=== PATIENT | female | born 1970 | race Caucasian/White ===

== ENCOUNTER 2018-02-13 23:48 | Inpatient (IN) | payer BC ==
[~2018-02-13] VITALS: Ht 157.5 cm; Wt 86.2 kg
[~2018-02-13 23:48] MED LIST: DESYREL100 MG PO; EFFEXOR XR150 MG PO; KEFLEX500 MG PO; MELATONIN10 M1 PO; PRILOSEC20 MG PO
[2018-02-14 13:27] VITALS: BP 129/82
[2018-02-14 21:03] VITALS: BP 136/81
[2018-02-14 21:52] LABS: HEMOGLOBIN 13.4 G/DL (11.9-15.5); MCH 27.7 PG (29.0-34.0); MCHC 33.5 G/DL (30.0-36.0); MCV 82.8 FL (83-99); PLATELET COUNT 224 K/uL (156-360); RBC DIS.WIDTH-CV 12.7 % (11.8-14.6); RBC DIS.WIDTH-SD 38.2 % (39-53); RED BLOOD COUNT 4.83 M/uL (3.80-5.20); WHITE BLOOD COUNT 16.7 K/uL (4.1-10.2)
[2018-02-14 22:16] LABS: CHLORIDE 102 MEQ/L (99-109); CREATININE 0.9 MG/DL (0.6-1.3); GFR ESTIMATE (CALCULATED) > 59 mL/min/; GLUCOSE 197 mg/dL (70-99); POTASSIUM 3.9 MEQ/L (3.7-5.4); SODIUM 136 MEQ/L (136-147); UREA NITROGEN (BUN) 9 mg/dL (9-23)
[2018-02-14 23:20] VITALS: BP 143/60
[2018-02-15 03:25] VITALS: BP 134/83
[2018-02-15 07:11] VITALS: BP 130/83
[2018-02-15 07:31] LABS: HEMATOCRIT 41.4 % (36.0-46.0); HEMOGLOBIN 13.8 G/DL (11.9-15.5); MCH 28.2 PG (29.0-34.0); MCHC 33.3 G/DL (30.0-36.0); MCV 84.7 FL (83-99); PLATELET COUNT 237 K/uL (156-360); RBC DIS.WIDTH-SD 39.6 % (39-53); RED BLOOD COUNT 4.89 M/uL (3.80-5.20); WHITE BLOOD COUNT 14.6 K/uL (4.1-10.2)
[2018-02-15 07:53] LABS: CHLORIDE 102 MEQ/L (99-109); CREATININE 0.9 MG/DL (0.6-1.3); GFR ESTIMATE (CALCULATED) > 59 mL/min/; GLUCOSE 159 mg/dL (70-99); SODIUM 137 MEQ/L (136-147); UREA NITROGEN (BUN) 9 mg/dL (9-23)
[2018-02-15 07:57] LABS: POTASSIUM 4.7 MEQ/L (3.7-5.4)
[2018-02-15 11:33] VITALS: BP 137/78
[2018-02-15 15:58] VITALS: BP 154/85
[2018-02-15 19:08] VITALS: BP 155/83
[2018-02-15 23:35] VITALS: BP 140/80
[2018-02-16 03:30] VITALS: BP 137/83
[2018-02-16 07:15] LABS: HEMATOCRIT 39.3 % (36.0-46.0); HEMOGLOBIN 13.1 G/DL (11.9-15.5); MCH 28.3 PG (29.0-34.0); MCHC 33.3 G/DL (30.0-36.0); MCV 84.9 FL (83-99); PLATELET COUNT 197 K/uL (156-360); RBC DIS.WIDTH-SD 39.8 % (39-53); RED BLOOD COUNT 4.63 M/uL (3.80-5.20); WHITE BLOOD COUNT 12.3 K/uL (4.1-10.2)
[2018-02-16 07:28] VITALS: BP 126/73
[2018-02-16 07:46] LABS: CHLORIDE 103 MEQ/L (99-109); CREATININE 0.9 MG/DL (0.6-1.3); GFR ESTIMATE (CALCULATED) > 59 mL/min/; POTASSIUM 3.9 MEQ/L (3.7-5.4); SODIUM 141 MEQ/L (136-147); UREA NITROGEN (BUN) 10 mg/dL (9-23)
[2018-02-16 07:55] LABS: GLUCOSE 115 mg/dL (70-99)
[2018-02-16] MEDS ORDERED: TRAMADOL HCL50 MG PO (09:35)
== END 2018-02-16 10:40 | disposition home or self-care (01) | DRG 828 ==
LOC: 2SOUTH → ENRESERV 23:48 → 2SOUTH 02-14 08:57 → ENRESERV 02-14 14:15 → 2SOUTH 02-14 14:24 → ENRESERV 02-14 15:04 → 2EAST 02-14 20:54
PROVIDERS: Obstetrics & Gynecology Gynecologic Oncology
DX: C79.89 Secondary malignant neoplasm of other specified sites (principal); C78.6 Secondary malignant neoplasm of retroperitoneum and peritoneum; G89.18 Other acute postprocedural pain; Z85.43 Personal history of malignant neoplasm of ovary; K21.9 Gastro-esophageal reflux disease without esophagitis; E78.00 Pure hypercholesterolemia, unspecified; E28.2 Polycystic ovarian syndrome; E66.9 Obesity, unspecified; Z68.34 Body mass index [BMI] 34.0-34.9, adult; K58.9 Irritable bowel syndrome, unspecified; G43.909 Migraine, unspecified, not intractable, without status migrainosus; F41.9 Anxiety disorder, unspecified; F32.9 Major depressive disorder, single episode, unspecified; Z83.3 Family history of diabetes mellitus; Z82.49 Family history of ischemic heart disease and other diseases of the circulatory system; Z82.3 Family history of stroke; Z80.9 Family history of malignant neoplasm, unspecified
CPT/HCPCS: 80048; 85027; 86850; 86900; 86901; 86920; 88108; 88305; 88307; 94799; C1758; J0690; J1100; J1650; J1885; J2250; J2405; J2710; J2765; J3010